=== PATIENT | female | born 1995 | race Caucasian/White ===

== ENCOUNTER 2017-09-17 15:34 | Emergency (ER) | payer OTHER ==
[2017-09-17 15:39] VITALS: O2SAT 98
[2017-09-17] MEDS ORDERED: ONDANSETRON 4 MG/2 ML VIAL IVP ONE (17:06)
[2017-09-17] MEDS ORDERED: NS 1,000 ML IV ONE ×2 (17:06→18:45)
--- NOTE | 2017-09-17 17:12 | EDPHY ---
HPI/HX/ROS/PE/MDM Narrative: CHIEF COMPLAINT: Nausea, vomiting, near syncope HISTORY OF PRESENT ILLNESS: The patient is a 22 y/o female with a history of PCOS complaining of nausea, vomiting, diarrhea, and near syncope. She recently moved here from [place]. Today, she woke up nauseated. She had several instances of vomiting and diarrhea. She had three episodes of near syncope in which she began feeling lightheaded and like she would fall/faint, prompting her to sit down. She has associated crampy abdominal pain. She denies dark or tarry stool, bloody emesis, fever, or any other associated symptoms. Her last normal period ended two weeks ago. Front Desk Receptionist in ED reported that she looked very pale earlier. r No fever, chills, chest pain, shortness of breath, palpitations, urinary complaints, headache. REVIEW OF SYSTEMS: Aside from elements discussed in the HPI, a comprehensive 10-point review of systems was reviewed and is negative. 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 Tachycardic. GENERAL: Well-developed, well-nourished, resting comfortably in no respiratory distress. HEENT: Atraumatic. Eyes: No icterus, no injection. Mouth: Slightly dry mucous membranes, dry lips. No erythema or lesions. Neck: supple with no adenopathy. LUNGS: Clear to auscultation bilaterally, no wheezes, rhonchi or rales. CARDIAC: Tachycardic, no rubs, murmurs or gallops. ABDOMEN: Soft, nontender, nondistended, bowel sounds normal. BACK: No CVA tenderness. EXTREMITIES: No trauma. No edema. Range of motion is normal throughout. NEURO: Alert and oriented, grossly nonfocal. SKIN: Warm and dry, no rash. PSYCHIATRIC: Normal mentation, no agitation. ED Course: The patient presents with nausea, vomiting, diarrhea, and three episodes of near syncope. She has a history of PCOS. On exam, she is tachycardic with dry lips. Plan for IV fluids and labs. 12-LEAD EKG: Please see the full report in [facility]. My interpretation: Sinus tachycardia. Her labs are unremarkable. She declined Zofran when offered. She remains tachycardic. A second liter of fluids will be given. Heart rate diminished heart following the 2nd L fluid. Patient was feeling improved and wishes to go home. Discharged with prepack of Zofran as well as a prescription. Follow-up instructions and return precautions given. The patient agrees to this course of action. MDM: Differential diagnosis of the patient's nausea and vomiting was considered including but not limited to gastroenteritis, gastritis, alcohol intoxication, withdrawal symptoms, intraabdominal processes including appendicitis, pancreatitis, bowel obstruction and medication side effect. - Data Points Laboratory Results: Laboratory Results 09/17/17 17:15 09/17/17 17:15 Medications Given: Discontinued Medications Sodium Chloride (Ns) 1,000 mls @ 0 mls/hr IV ONCE ONE; Wide Open PRN Reason: Protocol Stop: 09/17/17 17:07 Last Admin: 09/17/17 17:26 Dose: 1,000 mls Sodium Chloride (Ns) 1,000 mls @ 0 mls/hr IV ONCE ONE; Wide Open PRN Reason: Protocol Stop: 09/17/17 18:46 Last Admin: 09/17/17 18:50 Dose: 1,000 mls Ondansetron HCl (Zofran) 4 mg IVP EDNOW ONE Stop: 09/17/17 17:07 Last Admin: 09/17/17 18:38 Dose: 4 mg Ondansetron HCl (Zofran Odt 4 Mg Prepack#2) 1 btl TAKEHOME EDNOW ONE Stop: 09/17/17 18:31 Last Admin: 09/17/17 18:38 Dose: 1 btl General Time Seen by Provider: 09/17/17 17:01 Initial Vital Signs: Initial Vital Signs Temperature (C) 37 C 09/17/17 15:35 Heart Rate 112 H 09/17/17 15:35 Respiratory Rate 16 09/17/17 15:35 Blood Pressure 139/76 H 09/17/17 15:35 O2 Sat (%) 98 09/17/17 15:35 O2 Delivery Mode Room Air Allergies/Adverse Reactions: clindamycin Allergy (Severe, Verified 09/17/17 15:39) Anaphylaxis Home Medications: Medication Instructions Recorded Control Pills 09/17/17 Ondansetron Odt [Zofran Odt 4 mg 4 mg PO Q6 PRN #8 tab 09/17/17 (RX)] Departure - Departure Disposition: Home, Routine, Self-Care Clinical Impression: Acute gastroenteritis Condition: Good Instructions: Gastroenteritis (ED), Acute Nausea and Vomiting (ED) Additional Instructions: For your vomiting and diarrhea, I suggested you start with a bland diet and advance as tolerated. This means start with clear liquids such as water, Gatorade, juice, flat non- caffeinated soda. Take small sips frequently to stay hydrated. If you tolerate clear liquids, then you may add bland foods such as bananas, rice, or toast. If you do not have any worsening of your symptoms, you may begin to resume a regular diet. Okay to use Zofran as needed for recurrent or ongoing nausea and vomiting. Wash hands frequently. Avoid contact with other individuals while you are sick. Return to the emergency department or seek care urgently if your worsening despite the above measures, if you continue to have nausea, vomiting despite the Zofran, if you have ongoing lightheadedness and dizziness, if you have recurrent episodes of fainting or near fainting, or you are failing to improve as expected. Referrals: Donta Chávez [Doctor of Osteopathy] - As per Instructions Prescriptions: Ondansetron Odt [Zofran Odt 4 mg (RX)] 4 mg PO Q6 PRN #8 tab PRN Reason: Nausea Report Scribed for: Hallie Chung Report Scribed by: Myesha Olmedo Date of Report: 09/17/17 Time of Report: 17:02 Physician Review and Approval Statement: Portions of this note were transcribed by a medical lab scientist. I personally performed a history, physical exam, medical decision making, and confirmed accuracy of information the transcribed note.
[2017-09-17 17:25] LABS: PLATELET COUNT 359 10^3/uL (150-400)
--- NOTE | 2017-09-17 17:27 | CPEKG ---
Heart Rate: 98 RR Interval: 612 P-R Interval: 140 QRSD Interval: 82 QT Interval: 368 QTC Interval: 470 P [place]: 57 QRS [place]: 40 T Wave [place]: 20 EKG Severity - NORMAL ECG - EKG Impression: SINUS RHYTHM Electronically Signed By: Hallie Chung 17-Sep-2017 20:34:44
[2017-09-17] MEDS ORDERED: ONDANSETRON 4MG PREPACK#2 BTL TAKEHOME ONE (18:30)
[2017-09-17 19:19] VITALS: BP 122/70; PULSE 96; RESP 18
[2017-09-17 19:38] VITALS: TEMP 98.8
== END 2017-09-17 19:37 | disposition home or self-care (01) ==
DX: K52.9 Noninfective gastroenteritis and colitis, unspecified (principal); E86.9 Volume depletion, unspecified
CPT/HCPCS: 96374; J2405